=== PATIENT | female | born 1960 | race Caucasian/White ===

== ENCOUNTER → 2016-10-11 | Outpatient (CLI) | payer OTHER | LOC: GMAL 12:38 | PROVIDERS: ATTEND Family Medicine | DX: D50.8 Other iron deficiency anemias (principal) ==

== ENCOUNTER 2019-05-09 05:40 | Day surgery (SDC) | payer OTHER ==
[2019-05-09] MEDS: LACTATED RINGERS 1,000 ML ONE (07:50)
--- NOTE | 2019-05-09 09:14 | OP ---
DATE OF PROCEDURE: 05/09/19 PREOPERATIVE DIAGNOSIS: 1. History of colonic polyps. POSTOPERATIVE DIAGNOSIS: 1. History of colonic polyps. PROCEDURE: 1. Colonoscopy. SURGEON: Frederick Sandhu MD ANESTHESIA: General. FINDINGS: Colonoscopy completed with intubation of the terminal ileum. No polyps were seen. The prep was adequate. COMPLICATIONS: None. PLAN: Discharge. INDICATION: Ms. Sampson is a 58-year-old woman with a colonoscopy over 3 years ago in which a number of polyps were removed. She is here for a followup colonoscopy with a history of polyps. Complete informed consent was given. PROCEDURE: The patient was laid comfortably on the procedure bed. IV anesthesia was given. Once she was comfortable, digital rectal was performed. She does have multiple external anal tags with no evidence of thrombosed hemorrhoids. Digital rectal exam revealed no masses and normal sphincter tone. The colonoscope was inserted gently. We were able to traverse the colon and reach the cecum with minimal difficulty. The terminal ileum was intubated for a short period and appeared normal. We did require some irrigation due to fecal material, but overall the prep was adequate. Upon withdrawal, the cecum, ascending, transverse, flexures, descending colon and sigmoid appeared normal with no evidence of inflammation, scarring or polyps. No significant diverticulosis was noted. Retroflexion in the rectum appeared normal. Overall, a normal exam. She will be notified of her results. #[id number] MTDD
[2019-05-09 09:50] VITALS: BP 102/61; TEMP 98; O2SAT 98
[2019-05-09] MEDS ORDERED: LIDOCAINE 1% 10 ML VIAL INJ ONE (10:00)
[2019-05-09] MEDS ORDERED: PROPOFOL 200 MG/20 ML VIAL IV ONE (10:00)
== END 2019-05-09 09:35 | disposition home or self-care (01) ==
LOC: AMB 05:40
PROVIDERS: ATTEND Surgery
DX: Z09 Encounter for follow-up examination after completed treatment for conditions other than malignant neoplasm (principal); K64.4 Residual hemorrhoidal skin tags; D64.9 Anemia, unspecified; Z86.010 Personal history of colon polyps; Z90.710 Acquired absence of both cervix and uterus
CPT/HCPCS: 00811; 45378; J3490; J7120